=== PATIENT | male | born 1970 | race Caucasian/White ===

== ENCOUNTER 2018-01-16 11:42 | Emergency (ER) | payer BC ==
[~2018-01-16] VITALS: Ht 188 cm; Wt 117.9 kg
[2018-01-16] MEDS: cloNIDine HCL 0.1 MG TAB PO ONE (12:14)
[2018-01-16 12:29] LABS: Basophils # (auto) 0.1 uL; Basophils % (auto) 0.5 % (0.0-2.0); Eosinophils # (auto) 0.1 uL; Eosinophils % (auto) 0.7 % (0.0-7.0); Hematocrit 49.2 % (41.0-53.0); Hemoglobin 17.4 g/dL (13.5-17.5); Lymphocytes # (auto) 1.4 uL; Lymphocytes % (auto) 12.9 % (10.0-50.0); Mean Corpuscular Hemoglobin 32.4 pg (28.0-32.0); Mean Corpuscular Hgb Conc. 35.4 g/dL (32.0-36.0); Mean Corpuscular Volume 91.6 fL (80.0-100.0); Monocytes # (auto) 0.9 uL; Monocytes % (auto) 7.9 % (0.0-12.0); Neutrophils # (auto) 8.4 uL; Nucleated Red Blood Cells % 0.2 %; Platelet Count (auto) 198 10^3/uL (140-450); Red Blood Cells 5.37 10^6/uL (4.5-5.90); Red Cell Distribution Width 14.2 % (11.8-14.3); White Blood Cell 10.8 10^3/uL (4.4-10.8)
[2018-01-16 12:41] VITALS: BP 195/110
[2018-01-16 13:15] LABS: Alanine Aminotransferase 60 U/L (16-61); Albumin 3.9 g/dL (3.4-5.0); Alkaline Phosphatase 58 U/L (45-117); Anion Gap 13 (5-15); Aspartate Aminotransferase 34 U/L (15-37); BUN/Creatinine Ratio 10.3; Bilirubin, Total 0.5 mg/dL (0.2-1.0); Blood Urea Nitrogen 9 mg/dL (7-18); Calcium 8.1 mg/dL (8.5-10.1); Carbon Dioxide 20 mmol/L (21-32); Chloride 103 mmol/L (98-107); GFR African American 120 mL/min; GFR Non-African American 99 mL/min; Glucose 114 mg/dL (74-106); Magnesium 2.3 mg/dL (1.6-2.6); Potassium 3.6 mmol/L (3.5-5.1); Sodium 136 mmol/L (136-145); Total Protein 7.6 g/dL (6.4-8.2)
== END 2018-01-16 14:59 | disposition home or self-care (01) ==
LOC: EDUNIT# 11:42 → EDBD 11:42 → ER 11:42
DX: I16.0 Hypertensive urgency (principal); I10 Essential (primary) hypertension; R11.0 Nausea; G89.29 Other chronic pain; M54.9 Dorsalgia, unspecified; Z90.49 Acquired absence of other specified parts of digestive tract; F17.210 Nicotine dependence, cigarettes, uncomplicated
CPT/HCPCS: 36415; 70450; 80053; 83735; 84484; 85025; 93005; 94761

== ENCOUNTER 2018-03-10 23:49 | Inpatient (IN) | payer BC, MEDICAID ==
[~2018-03-10] VITALS: Ht 188 cm; Wt 112.5 kg
[2018-03-11 00:47] LABS: Basophils # (auto) 0.1 uL; Basophils % (auto) 0.6 % (0.0-2.0); Eosinophils # (auto) 0.2 uL; Eosinophils % (auto) 2.9 % (0.0-7.0); Hematocrit 48.1 % (41.0-53.0); Hemoglobin 16.8 g/dL (13.5-17.5); Lymphocytes # (auto) 2.3 uL; Lymphocytes % (auto) 28.2 % (10.0-50.0); Mean Corpuscular Hemoglobin 32.1 pg (28.0-32.0); Mean Corpuscular Volume 91.6 fL (80.0-100.0); Monocytes # (auto) 0.9 uL; Monocytes % (auto) 10.5 % (0.0-12.0); Neutrophils # (auto) 4.7 uL; Neutrophils % (auto) 57.8 % (37.0-80.0); Nucleated Red Blood Cells % 0.1 %; Platelet Count (auto) 202 10^3/uL (140-450); Red Blood Cells 5.25 10^6/uL (4.5-5.90); Red Cell Distribution Width 13.9 % (11.8-14.3); White Blood Cell 8.1 10^3/uL (4.4-10.8)
[2018-03-11 01:04] LABS: Alanine Aminotransferase 55 U/L (16-61); Albumin 3.4 g/dL (3.4-5.0); Anion Gap 12 (5-15); Aspartate Aminotransferase 27 U/L (15-37); BUN/Creatinine Ratio 13.4; Blood Urea Nitrogen 13 mg/dL (7-18); Carbon Dioxide 21 mmol/L (21-32); Chloride 103 mmol/L (98-107); GFR African American 106 mL/min; GFR Non-African American 87 mL/min; Glucose 111 mg/dL (74-106); Magnesium 1.9 mg/dL (1.6-2.6); Potassium 3.7 mmol/L (3.5-5.1); Sodium 136 mmol/L (136-145)
[2018-03-11 01:09] LABS: Alkaline Phosphatase 63 U/L (45-117); Bilirubin, Total 0.4 mg/dL (0.2-1.0); Total Protein 7.1 g/dL (6.4-8.2)
[2018-03-11] MEDS ORDERED: fentaNYL CITRATE 100 MCG/2 ML VL IV ONE (03:15)
[2018-03-11] MEDS ORDERED: LABETALOL HCL 5 MG/ML ML 20ML VIAL IV ONE (03:15)
[2018-03-11] MEDS ORDERED: ONDANSETRON HCL 4 MG/2 ML VIAL IV PRN (05:15)
[2018-03-11] MEDS ORDERED: cloNIDine HCL 0.1 MG TAB PO PRN (05:15)
[2018-03-11] MEDS ORDERED: ACETAMINOPHEN 325 MG TAB PO PRN (05:15)
[2018-03-11] MEDS ORDERED: MORPHINE SULF INJ 2 MG/ML SYRINGE 1ML IV PRN (05:15)
[2018-03-11] MEDS ORDERED: NITROGLYCERIN 0.4 MG SL TAB SL PRN (05:15)
[2018-03-11] MEDS ORDERED: TEMAZEPAM 15 MG CAP PO PRN (05:15)
[2018-03-11] MEDS: HYDROcodone-ACET 5/325MG TAB PO PRN ×2 (07:44→18:03)
[2018-03-11] MEDS: ASPirin 81 mg TAB PO SCH (09:48)
[2018-03-11] MEDS: FAMOTIDINE 20 MG TAB PO SCH ×2 (09:49→22:39)
[2018-03-11] MEDS: ATENOLOL 25 MG TAB PO SCH ×2 (09:50→22:38)
[2018-03-11] MEDS ORDERED: LISINOPRIL 20 MG TAB PO SCH (10:00)
[2018-03-11] MEDS ORDERED: HCTZ 25 MG TAB PO SCH (10:00)
[2018-03-11 14:30] VITALS: BP 143/88
[2018-03-11 14:51] VITALS: BP 143/88
[2018-03-11] MEDS ORDERED: IBUP800T24 PO (14:52)
[2018-03-11] MEDS ORDERED: LISI-706 PO (14:52)
[2018-03-11] MEDS ORDERED: ATEN-60 PO (14:52)
[2018-03-11] MEDS ORDERED: CLON05T PO (14:52)
[2018-03-11 16:49] VITALS: BP 138/75
[2018-03-11 16:50] VITALS: BP_SYST 141; BP_SYST 148; BP_DIAS 88; BP_DIAS 90
[2018-03-11] MEDS ORDERED: NICOTINE 14 MG/24HR TOPICAL PATCH TD ONE (18:30)
[2018-03-11 21:40] VITALS: BP 152/77
[2018-03-11] MEDS: LOSARTAN POTASSIUM 50 MG TAB PO SCH (22:39)
[2018-03-12 05:50] VITALS: BP 132/73
[2018-03-12 05:51] VITALS: BP 132/73
[2018-03-12 07:43] LABS: Basophils # (auto) 0.1 uL; Basophils % (auto) 0.6 % (0.0-2.0); Eosinophils # (auto) 0.2 uL; Eosinophils % (auto) 1.9 % (0.0-7.0); Hematocrit 48.7 % (41.0-53.0); Hemoglobin 17.2 g/dL (13.5-17.5); Lymphocytes # (auto) 2.7 uL; Lymphocytes % (auto) 27.8 % (10.0-50.0); Mean Corpuscular Hemoglobin 32.8 pg (28.0-32.0); Mean Corpuscular Hgb Conc. 35.3 g/dL (32.0-36.0); Mean Corpuscular Volume 92.8 fL (80.0-100.0); Monocytes # (auto) 0.9 uL; Monocytes % (auto) 9.6 % (0.0-12.0); Neutrophils # (auto) 5.8 uL; Neutrophils % (auto) 60.1 % (37.0-80.0); Nucleated Red Blood Cells % 0.2 %; Platelet Count (auto) 195 10^3/uL (140-450); Red Blood Cells 5.25 10^6/uL (4.5-5.90); Red Cell Distribution Width 14.2 % (11.8-14.3); White Blood Cell 9.6 10^3/uL (4.4-10.8)
[2018-03-12 07:56] LABS: Albumin 3.5 g/dL (3.4-5.0); BUN/Creatinine Ratio 11.5; Bilirubin, Total 0.6 mg/dL (0.2-1.0); Calcium 8.4 mg/dL (8.5-10.1); Potassium 3.8 mmol/L (3.5-5.1); Total Protein 7.2 g/dL (6.4-8.2)
[2018-03-12 09:00] VITALS: BP 131/74
[2018-03-12] MEDS: ATENOLOL 25 MG TAB PO SCH (09:51)
[2018-03-12] MEDS: FAMOTIDINE 20 MG TAB PO SCH (09:51)
[2018-03-12] MEDS: LOSARTAN POTASSIUM 50 MG TAB PO SCH (09:52)
[2018-03-12] MEDS: ASPirin 81 mg TAB PO SCH (09:57)
[2018-03-12] MEDS: HYDROcodone-ACET 5/325MG TAB PO PRN (09:58)
[2018-03-12] MEDS ORDERED: NICOTINE 14 MG/24HR TOPICAL PATCH TD SCH (10:00)
[2018-03-12] MEDS ORDERED: HCTZ 25 MG TAB PO SCH (10:00)
[2018-03-12 10:46] VITALS: BP 131/74
== END 2018-03-12 13:13 | disposition home or self-care (01) | DRG 203 ==
LOC: ER 23:49 → TELE 23:50 → TELE-CENTR 03-11 14:12
PROVIDERS: ADMIT Nurse Practitioner; ATTEND Internal Medicine
DX: R07.89 Other chest pain (principal); I10 Essential (primary) hypertension; E66.9 Obesity, unspecified; Z79.899 Other long term (current) drug therapy; F17.210 Nicotine dependence, cigarettes, uncomplicated; Z72.89 Other problems related to lifestyle; F41.9 Anxiety disorder, unspecified; Z90.49 Acquired absence of other specified parts of digestive tract; Z68.31 Body mass index [BMI] 31.0-31.9, adult
CPT/HCPCS: 36415; 70450; 71045; 80053; 80320; 83735; 83880; 84443; 84484; 85025; 93005; 93306; 94761; 96374; 96375

== ENCOUNTER 2018-03-18 10:42 | Inpatient (IN) | payer MEDICAID ==
[~2018-03-18] VITALS: Ht 188 cm; Wt 119.5 kg
[~2018-03-18 10:42] MED LIST: ATEN-60 PO; CLON05T PO
[2018-03-18 11:18] LABS: Basophils # (auto) 0.1 uL; Basophils % (auto) 0.7 % (0.0-2.0); Eosinophils # (auto) 0.2 uL; Eosinophils % (auto) 2.7 % (0.0-7.0); Hematocrit 49.9 % (41.0-53.0); Hemoglobin 17.4 g/dL (13.5-17.5); Lymphocytes # (auto) 2.3 uL; Lymphocytes % (auto) 25.3 % (10.0-50.0); Mean Corpuscular Hemoglobin 32.4 pg (28.0-32.0); Mean Corpuscular Hgb Conc. 34.9 g/dL (32.0-36.0); Mean Corpuscular Volume 92.9 fL (80.0-100.0); Monocytes # (auto) 1.1 uL; Monocytes % (auto) 11.8 % (0.0-12.0); Neutrophils # (auto) 5.4 uL; Neutrophils % (auto) 59.5 % (37.0-80.0); Nucleated Red Blood Cells % 0.2 %; Platelet Count (auto) 235 10^3/uL (140-450); Red Blood Cells 5.38 10^6/uL (4.5-5.90); Red Cell Distribution Width 14.2 % (11.8-14.3)
[2018-03-18 11:46] LABS: Alanine Aminotransferase 71 U/L (16-61); Albumin 3.7 g/dL (3.4-5.0); Alkaline Phosphatase 79 U/L (45-117); Anion Gap 8 (5-15); Aspartate Aminotransferase 33 U/L (15-37); BUN/Creatinine Ratio 12.8; Bilirubin, Total 0.5 mg/dL (0.2-1.0); Blood Urea Nitrogen 15 mg/dL (7-18); Calcium 8.4 mg/dL (8.5-10.1); Carbon Dioxide 27 mmol/L (21-32); Chloride 100 mmol/L (98-107); GFR African American 85 mL/min; GFR Non-African American 70 mL/min; Glucose 113 mg/dL (74-106); Magnesium 2.5 mg/dL (1.6-2.6); Potassium 3.7 mmol/L (3.5-5.1); Sodium 135 mmol/L (136-145)
[2018-03-18] MEDS ORDERED: LORazepam 0.5 MG TAB PO PRN (17:30)
[2018-03-18] MEDS ORDERED: MORPHINE SULF INJ 2 MG/ML SYRINGE 1ML IV PRN ×2 (17:30)
[2018-03-18] MEDS ORDERED: SPIRONOLACTONE 25 MG TAB PO ONE (17:30)
[2018-03-18] MEDS ORDERED: MORPHINE SULFATE 4 MG/ML SYR/VIAL IV ONE (17:30)
[2018-03-18] MEDS ORDERED: FUROSEMIDE 40 MG/4 ML VIAL IV ONE (17:30)
[2018-03-18] MEDS ORDERED: NITROGLYCERIN 0.4 MG SL TAB SL PRN (17:30)
[2018-03-18] MEDS ORDERED: ACETAMINOPHEN 500 MG TAB PO PRN (17:30)
[2018-03-18] MEDS ORDERED: PROMETHAZINE HCL 25 MG/ML 1ML IV PRN (17:30)
[2018-03-18] MEDS ORDERED: ONDANSETRON HCL 4 MG/2 ML VIAL IV ONE (17:30)
[2018-03-18] MEDS ORDERED: HYDROcodone-ACET 5/325MG TAB PO PRN (17:30)
[2018-03-18] MEDS ORDERED: TEMAZEPAM 15 MG CAP PO PRN (17:30)
[2018-03-18] MEDS ORDERED: LACTULOSE 20Gm/30ML SOLN PO PRN (17:30)
[2018-03-18] MEDS: NITROGLYCERIN 0.2MG/HR TOPICAL PATCH TD SCH (18:10)
[2018-03-18] MEDS: ENOXAPARIN SOD 40 MG/0.4 ML SYRINGE SC SCH (18:10)
[2018-03-18] MEDS: PANTOPRAZOLE 40 MG TAB PO SCH (18:10)
[2018-03-18] MEDS: SODIUM CHLORIDE 0.9% 1,000 ML IV SCH (18:16)
[2018-03-18 22:00] VITALS: BP 134/75
[2018-03-18] MEDS: ATORVASTATIN 20 MG TAB PO SCH (22:11)
[2018-03-18] MEDS: ATENOLOL 25 MG TAB PO SCH (22:12)
[2018-03-19 05:00] VITALS: BP 103/61
[2018-03-19] MEDS: SODIUM CHLORIDE 0.9% 1,000 ML IV SCH (07:00)
[2018-03-19 07:06] LABS: Cholesterol 185 mg/dL (< 200); HDL Cholesterol 27 mg/dL (40-59); LDL Cholesterol 122 mg/dL (< 100); Triglycerides 372 mg/dL (< 150)
[2018-03-19 09:00] VITALS: BP 119/73
[2018-03-19] MEDS: ENOXAPARIN SOD 40 MG/0.4 ML SYRINGE SC SCH (09:51)
[2018-03-19] MEDS: PANTOPRAZOLE 40 MG TAB PO SCH (09:51)
[2018-03-19] MEDS: NITROGLYCERIN 0.2MG/HR TOPICAL PATCH TD SCH (09:52)
[2018-03-19] MEDS: ATENOLOL 25 MG TAB PO SCH ×2 (09:53→21:47)
[2018-03-19] MEDS: ASPirin 81 mg TAB PO SCH (09:53)
[2018-03-19] MEDS ORDERED: ENALAPRIL MALEATE 2.5 MG TAB PO SCH (10:00)
[2018-03-19] MEDS ORDERED: clonazePAM 0.5 MG TAB PO SCH (10:00)
[2018-03-19 13:00] VITALS: BP 124/64
[2018-03-19] MEDS ORDERED: IOHEXOL 350 MG/ML 100ML IJ ONE (16:04)
[2018-03-19 17:06] VITALS: BP 166/94
[2018-03-19] MEDS ORDERED: ENALAPRIL MALEATE 2.5 MG TAB PO ONE (18:00)
[2018-03-19] MEDS ORDERED: ACETAMINOPHEN 500 MG TAB PO ONE (18:30)
[2018-03-19] MEDS ORDERED: HYDROcodone-ACET 5/325MG TAB PO ONE (18:30)
[2018-03-19] MEDS ORDERED: HYDROcodone-ACET 5/325MG TAB PO PRN (19:00)
[2018-03-19] MEDS: ATORVASTATIN 20 MG TAB PO SCH (21:46)
[2018-03-19 22:00] VITALS: BP 133/76
[2018-03-20] VITALS (9 sets, daily range): BP systolic 118–157; BP diastolic 71–109
[2018-03-20] MEDS ORDERED: ENALAPRIL MALEATE 10 MG TAB PO SCH (10:00)
[2018-03-20] MEDS: ATENOLOL 25 MG TAB PO SCH (10:00)
[2018-03-20] MEDS: ASPirin 81 mg TAB PO SCH (10:00)
[2018-03-20] MEDS: PANTOPRAZOLE 40 MG TAB PO SCH (10:00)
[2018-03-20] MEDS: FENOFIBRATE 145 MG PO SCH (10:00)
[2018-03-20] MEDS: ENOXAPARIN SOD 40 MG/0.4 ML SYRINGE SC SCH (10:00)
[2018-03-20] MEDS ORDERED: ADENOSINE 100 MG in GIVE UN-DILUTED 0 ML IV ONE (15:30)
[2018-03-20] MEDS: ATORVASTATIN 20 MG TAB PO SCH (21:35)
[2018-03-21 05:00] VITALS: BP 108/68
[2018-03-21 08:30] VITALS: BP 139/70
[2018-03-21] MEDS: ASPirin 81 mg TAB PO SCH (09:18)
[2018-03-21] MEDS: PANTOPRAZOLE 40 MG TAB PO SCH (09:19)
[2018-03-21] MEDS: ENALAPRIL MALEATE 2.5 MG TAB PO SCH ×2 (09:20→21:54)
[2018-03-21] MEDS: ENOXAPARIN SOD 40 MG/0.4 ML SYRINGE SC SCH (10:00)
[2018-03-21] MEDS: FENOFIBRATE 145 MG PO SCH (10:00)
[2018-03-21 10:08] LABS: Alcohol, Urine < 3.0 mg/dL (0-5); Amphetamine Screen, Urine NEGATIVE (NEGATIVE); Barbiturate Scree,Urine NEGATIVE (NEGATIVE); Benzodiazephine Screen, Urine NEGATIVE (NEGATIVE); Cannabinoid Screen, Urine NEGATIVE (NEGATIVE); Cocaine Screen, Urine NEGATIVE (NEGATIVE); Opiate Scree,Urine POSITIVE (NEGATIVE); Phencyclidine Screen, Urine NEGATIVE (NEGATIVE)
[2018-03-21 12:30] VITALS: BP 150/82
[2018-03-21 17:07] VITALS: BP 111/61
[2018-03-21] MEDS: ATORVASTATIN 20 MG TAB PO SCH (21:23)
[2018-03-21 22:00] VITALS: BP 148/82
[2018-03-22 06:05] VITALS: BP 139/80
[2018-03-22 07:03] LABS: Basophils # (auto) 0.1 uL; Basophils % (auto) 0.5 % (0.0-2.0); Eosinophils # (auto) 0.3 uL; Eosinophils % (auto) 2.7 % (0.0-7.0); Hematocrit 48.2 % (41.0-53.0); Hemoglobin 16.7 g/dL (13.5-17.5); Lymphocytes # (auto) 2.5 uL; Lymphocytes % (auto) 26.8 % (10.0-50.0); Mean Corpuscular Hemoglobin 32.4 pg (28.0-32.0); Mean Corpuscular Hgb Conc. 34.8 g/dL (32.0-36.0); Mean Corpuscular Volume 93.3 fL (80.0-100.0); Monocytes # (auto) 0.8 uL; Monocytes % (auto) 8.8 % (0.0-12.0); Neutrophils # (auto) 5.6 uL; Neutrophils % (auto) 61.2 % (37.0-80.0); Nucleated Red Blood Cells % 0.1 %; Platelet Count (auto) 225 10^3/uL (140-450); Red Blood Cells 5.16 10^6/uL (4.5-5.90); Red Cell Distribution Width 13.6 % (11.8-14.3); White Blood Cell 9.2 10^3/uL (4.4-10.8)
[2018-03-22 07:20] LABS: INR 0.94 (0.9-1.15); Partial Thromboplastin Time 30.1 sec (23.78-33.04); Prothrombin Time 10.1 sec (9.27-12.13)
[2018-03-22 07:21] LABS: Calcium 8.5 mg/dL (8.5-10.1); Potassium 4.1 mmol/L (3.5-5.1)
[2018-03-22 08:05] VITALS: BP 142/79
[2018-03-22] MEDS ORDERED: TEMAZEPAM 15 MG CAP PO PRN (09:00)
[2018-03-22] MEDS ORDERED: ATOR20TA50 PO (09:09)
[2018-03-22] MEDS ORDERED: ENA2.5T PO (09:09)
[2018-03-22] MEDS ORDERED: ASPI81CH43 PO (09:09)
[2018-03-22] MEDS ORDERED: IOHEXOL 350 MG/ML 100ML IJ ONE (09:12)
[2018-03-22] MEDS ORDERED: LIDOCAINE 2% (LOCAL ANESTH.) PF 5ml SDV ONE (09:14)
[2018-03-22] MEDS ORDERED: fentaNYL CITRATE 100 MCG/2 ML VL ONE (09:48)
[2018-03-22] MEDS ORDERED: SODIUM CHL 0.9% 0 ML ONE (09:48)
[2018-03-22] MEDS ORDERED: ANGIOMAX 250 MG VIAL IV ONE (09:48)
[2018-03-22] MEDS ORDERED: MIDAZOLAM HCL 1MG/1ML-2 ML VIAL ONE (09:48)
[2018-03-22] MEDS: PANTOPRAZOLE 40 MG TAB PO SCH (10:00)
[2018-03-22] MEDS: FENOFIBRATE 145 MG PO SCH (10:00)
[2018-03-22] MEDS: ENALAPRIL MALEATE 2.5 MG TAB PO SCH (10:00)
[2018-03-22] MEDS: ENOXAPARIN SOD 40 MG/0.4 ML SYRINGE SC SCH (10:00)
[2018-03-22] MEDS: ASPirin 81 mg TAB PO SCH (10:00)
[2018-03-22 12:27] VITALS: BP 117/71
[2018-03-22 16:46] VITALS: BP 141/67
== END 2018-03-22 17:57 | disposition home or self-care (01) | DRG 192 ==
LOC: ER 10:42 → TELE 10:43 → TELE-WESTW 20:20
PROVIDERS: ADMIT Internal Medicine; ATTEND Internal Medicine
PROC: 4A023N7 Measurement of Cardiac Sampling and Pressure, Left Heart, Percutaneous Approach (ICD-10-PCS; principal; 2018-03-22)
PROC: B2111ZZ Fluoroscopy of Multiple Coronary Arteries using Low Osmolar Contrast (ICD-10-PCS; 2018-03-22)
PROC: B2151ZZ Fluoroscopy of Left Heart using Low Osmolar Contrast (ICD-10-PCS; 2018-03-22)
DX: R07.89 Other chest pain (principal); E66.01 Morbid (severe) obesity due to excess calories; I95.9 Hypotension, unspecified; I10 Essential (primary) hypertension; E78.5 Hyperlipidemia, unspecified; F41.9 Anxiety disorder, unspecified; F17.210 Nicotine dependence, cigarettes, uncomplicated; T50.905A Adverse effect of unspecified drugs, medicaments and biological substances, initial encounter; M79.602 Pain in left arm; K21.9 Gastro-esophageal reflux disease without esophagitis; Z68.33 Body mass index [BMI] 33.0-33.9, adult; Z82.49 Family history of ischemic heart disease and other diseases of the circulatory system; Z80.9 Family history of malignant neoplasm, unspecified; Z90.49 Acquired absence of other specified parts of digestive tract; Y92.89 Other specified places as the place of occurrence of the external cause
CPT/HCPCS: 36415; 70545; 70551; 71046; 71260; 78452; 80048; 80053; 80061; 80307; 82550; 83735; 83835; 84443; 84484; 85025; 85379; 85610; 85652; 85730; 86141; 87081; 93005; 93017; 93458; 93886; 93926; 96374; 96375; 99152; A6257; J0153; J2001; J2250; J2405